=== PATIENT | male | born 1955 | race African-American/Black ===

== ENCOUNTER 2019-04-18 12:20 | Inpatient (IN) | payer OTHER ==
--- NOTE | 2019-04-18 18:49 | HP ---
CIWA Score Nausea/Vomitin Muscle Tremors: 2 Anxiety: 3 Agitation: 2 Paroxysmal Sweats: No Perspiration Orientation: 0-Oriented Tacttile Disturbances: 0-None Auditory Disturbances: 0-None Visual Disturbances: 0-None Headache: 2-Mild CIWA-Ar Total Score: 12 - Admission Criteria [facility]ASAS Guidelines: Admission for Medically Managed Detox: Requires at least one of the followin. CIWA greater than 12 2. Seizures within the past 24 hours 3. Delirium tremens within the past 24 hours 4. Hallucinations within the past 24 hours 5. Acute intervention needed for co occurring medical disorder 6. Acute intervention needed for co occurring psychiatric disorder 7. Severe withdrawal that cannot be handled at a lower level of care (continued vomiting, continued diarrhea, abnormal vital signs) requiring intravenous medication and/or fluids 8. Admission ROS [facility] - [facility] Chief Complaint: alcohol detox Allergies/Adverse Reactions: Allergies Allergy/AdvReac Type Severity Reaction Status Date / Time No Known Allergies Allergy Verified 04/18/19 17:32 History of Present Illness: Patient is a 63 yo M with a PMHx of HTN, BPH, COPD, presenting here for alcohol detox. Drinks 4-5 12oz a day. 1 Pint of liquor a day. Last drink last night around midnight Has been drinking since 25. Last detox 4-5 months ago. Had blackouts, last 1 about 2 months ago. No hx of seizures. Denies drug use except occasional marijuana. unemployed. Lives in a O. smokes 5 cigarettes. Exam Limitations: No Limitations - Ebola screening Have you traveled outside of the country in the last 21 days: No Have you had contact with anyone from an Ebola affected area: No - Review of Systems Constitutional: Loss of Appetite, Unintentional Wgt. Loss Respiratory: reports: Cough (white sputum production). denies: Wheezing Cardiac: denies: Chest Pain, Palpitations Patient History - Smoking Cessation Smoking history: Current every day smoker Have you smoked in the past 12 months: Yes Initiated information on smoking cessation: Yes 'Breaking Loose' booklet given: 04/18/19 - Substances abused Alcohol Substance route: Oral Frequency: Daily Amount used: vodka- 3pts/ beers- 3cans 24oz Age of first use: 25 Date of last use: 04/18/19 Crack Substance route: Smoking Frequency: Daily Amount used: $30 Age of first use: 15 Date of last use: 04/15/19 Family Disease History - Family Disease History Family History: Denies Admission Physical Exam [facility] - Physical General Appearance: Yes: No Apparent Distress Respiratory: Yes: No Respiratory Distress, No Accessory Muscle Use Cardiology: Yes: Regular Rhythm, Regular Rate Abdominal: Yes: Non Tender, Soft Neurological: Yes: Fully Oriented, Normal Response - Diagnostic (1) Alcohol abuse Current Visit: Yes Status: Acute (2) COPD (chronic obstructive pulmonary disease) Current Visit: Yes Status: Acute (3) HTN (hypertension) Current Visit: Yes Status: Acute (4) BPH (benign prostatic hyperplasia) Current Visit: Yes Status: Acute Cleared for Admission [facility] - Detox or Rehab [facility] Level of Care: Medically Managed Breathalyzer - Breathalyzer Breathalyzer: 0 Urine Drug Screen - Test Device Lot number: [id number] Expiration date: 12/30/20 - Control Is test valid?: Yes - Results Urine drug screen results: THC-Marijuana Inpatient Rehab Admission - Rehab Decision to Admit Inpatient rehab admission?: No
[2019-04-18] MEDS ORDERED: BISMUTH SUBSALICYLATE 524 MG/30 ML UD PO PRN (18:59)
[2019-04-18] MEDS ORDERED: MAGNESIUM HYDROX 2400MG/30ML ORAL SUSPENSION 30 ML CUP PO PRN (18:59)
[2019-04-18] MEDS ORDERED: hydrOXYzine PAMOATE 25 MG CAPSULE (FP) PO PRN (18:59)
[2019-04-18] MEDS ORDERED: ACETAMINOPHEN 325 MG TABLET (FP) PO PRN ×2 (18:59)
[2019-04-18] MEDS ORDERED: METHOCARBAMOL 500 MG TABLET PO PRN (18:59)
[2019-04-18] MEDS ORDERED: MAGNESIUM CITRATE 300 ML BOTTLE PO PRN (18:59)
[2019-04-18] MEDS ORDERED: chlordiazePOXIDE HCL 25 MG CAPSULE PO PRN (18:59)
[2019-04-18] MEDS ORDERED: MENTHOL/PHENOL 1 EACH UD MM PRN (18:59)
[2019-04-18] MEDS ORDERED: IBUPROFEN 400 MG TABLET (FP) PO PRN (18:59)
[2019-04-18] MEDS ORDERED: MELATONIN 5 MG TABLETS PO PRN (18:59)
[2019-04-18] MEDS ORDERED: MAG HYDROX/AL HYDROX/SIMETH 30 ML UNIT-DOSE CUP PO PRN (18:59)
[2019-04-18] MEDS ORDERED: ALBUTEROL SO4 8 GM HFA INHALER IH PRN (19:02)
--- NOTE | 2019-04-18 19:02 | PN ---
Teaching Attending Note Name of Resident: Antwan Jennings ATTENDING PHYSICIAN STATEMENT I saw and evaluated the patient. I reviewed the resident's note and discussed the case with the resident. I agree with the resident's findings and plan as documented. SUBJECTIVE: 63 yo was sent by his [facility] housing for drinking too much. Admits to drinking liqour daily in residence OBJECTIVE: Vital Signs - 24 hr 04/18/19 17:36 Temperature 98.4 F Pulse Rate 95 H Respiratory 20 Rate Blood Pressure 157/94 tremulous alert and oriented ASSESSMENT AND PLAN: alcohol use disorder- alcohol detox protocol
[2019-04-18 19:05] VITALS: BMI 20.5
[2019-04-18] MEDS: NICOTINE 14 MG/24 HOURS TOPICAL PATCH TD SCH (20:24)
[2019-04-18] MEDS: THIAMINE HCL 100 MG TABLET (FP) PO SCH (22:25)
[2019-04-18] MEDS: chlordiazePOXIDE HCL 25 MG CAPSULE PO SCH (22:25)
[2019-04-19] MEDS: chlordiazePOXIDE HCL 25 MG CAPSULE PO SCH ×4 (06:17→22:35)
[2019-04-19 09:51] LABS: HEMATOCRIT 45.4 % (35.4-49); HEMOGLOBIN 15.3 GM/dL (11.7-16.9); MCH 33.7 pg (25.7-33.7); MCHC 33.7 g/dl (32.0-35.9); MEAN PLT VOLUME 8.8 fl (7.5-11.1); PLATELET COUNT 178 K/MM3 (134-434); RBC 4.54 M/mm3 (4.00-5.60); RDW 14.3 % (11.9-15.9); WHITE BLOOD COUNT 3.8 K/mm3 (4.0-10.0)
--- NOTE | 2019-04-19 09:57 | PN ---
S CIWA - CIWA Score Nausea/Vomitin-Mild Nausea/No Vomiting Muscle Tremors: 4-Moderate,w/Arms Extend Anxiety: 3 Agitation: 3 Paroxysmal Sweats: 2 Orientation: 0-Oriented Tacttile Disturbances: 0-None Auditory Disturbances: 0-None Visual Disturbances: 0-None Headache: 1-Very Mild CIWA-Ar Total Score: 14 S Progress Note (SOAP) Subjective: 63 years old male [address] [facility] admission admitted on 04/18/19 for alcohol withdrawal sx management long history of hypertension asthma and bph recent bp elevation with headache denies dizziness no chest pain no shortness of breath increase amlodipine to 10 mg po Objective: 04/19/19 09:57 Vital Signs Temperature 97.2 F L 04/19/19 09:41 Pulse Rate 104 H 04/19/19 09:41 Respiratory Rate 20 04/19/19 09:41 Blood Pressure 149/100 04/19/19 09:41 O2 Sat by Pulse Oximetry (%) Laboratory Last Values WBC 3.8 K/mm3 (4.0-10.0) L 04/19/19 08:20 RBC 4.54 M/mm3 (4.00-5.60) 04/19/19 08:20 Hgb 15.3 GM/dL (11.7-16.9) 04/19/19 08:20 Hct 45.4 % (35.4-49) 04/19/19 08:20 MCV 100.0 fl (80-96) H 04/19/19 08:20 MCH 33.7 pg (25.7-33.7) 04/19/19 08:20 MCHC 33.7 g/dl (32.0-35.9) 04/19/19 08:20 RDW 14.3 % (11.9-15.9) 04/19/19 08:20 Plt Count 178 K/MM3 (134-434) 04/19/19 08:20 MPV 8.8 fl (7.5-11.1) 04/19/19 08:20 lab noted Assessment: 04/19/19 09:58 alcohol withdrawal sx Plan: continue librium detox regimen
[2019-04-19] MEDS ORDERED: amLODIPine BESYLATE 5 MG TABLET (FP) PO SCH (10:00)
[2019-04-19] MEDS: TAMSULOSIN HCL 0.4 MG CAP PO SCH (10:13)
[2019-04-19] MEDS: PRENATAL VITAMINS W/ FOLIC ACID TABLET (FP) PO SCH (10:13)
[2019-04-19] MEDS: amLODIPine BESYLATE 10 MG TABLET (FP) PO SCH (10:18)
[2019-04-19] MEDS: NICOTINE 14 MG/24 HOURS TOPICAL PATCH TD SCH (10:18)
[2019-04-19 10:21] LABS: ALBUMIN 3.3 g/dl (3.4-5.0); BLOOD UREA NITROGEN 9.3 mg/dL (7-18); CALCIUM 8.6 mg/dL (8.5-10.1); CREATININE 0.7 mg/dL (0.55-1.3); TOT PROT 7.1 g/dl (6.4-8.2)
[2019-04-19 11:23] LABS: POTASSIUM 2.8 mmol/L (3.5-5.1)
[2019-04-19] MEDS: POTASSIUM CHLORIDE ORAL LIQUID 20 MEQ/15 ML PO SCH ×2 (14:33→17:26)
[2019-04-19] MEDS: THIAMINE HCL 100 MG TABLET (FP) PO SCH (22:36)
[2019-04-20] MEDS: chlordiazePOXIDE HCL 25 MG CAPSULE PO SCH ×4 (05:41→22:45)
[2019-04-20] MEDS: amLODIPine BESYLATE 10 MG TABLET (FP) PO SCH (10:06)
[2019-04-20] MEDS: TAMSULOSIN HCL 0.4 MG CAP PO SCH (10:06)
[2019-04-20] MEDS: POTASSIUM CHLORIDE TABS 20 MEQ TABLET.ER (FP) PO SCH ×2 (10:07→17:28)
[2019-04-20] MEDS: PRENATAL VITAMINS W/ FOLIC ACID TABLET (FP) PO SCH (10:07)
[2019-04-20] MEDS: NICOTINE 14 MG/24 HOURS TOPICAL PATCH TD SCH (10:08)
--- NOTE | 2019-04-20 11:16 | PN ---
[facility] CIWA - CIWA Score Nausea/Vomitin-Mild Nausea/No Vomiting Muscle Tremors: 4-Moderate,w/Arms Extend Anxiety: 3 Agitation: 2 Paroxysmal Sweats: 1-Minimal Palms Moist Orientation: 0-Oriented Tacttile Disturbances: 1-Very Mild Itch/Numbness Auditory Disturbances: 0-None Visual Disturbances: 0-None Headache: 0-None Present CIWA-Ar Total Score: 12 S Progress Note (SOAP) Subjective: doing well with librium detox regimen tolerate K+ supplement well report long history of low K+ when drinking alcohol addition 20 meq K+ supplement today Objective: 04/20/19 11:15 Vital Signs Temperature 97.4 F L 04/20/19 06:36 Pulse Rate 90 04/20/19 06:36 Respiratory Rate 18 04/20/19 06:36 Blood Pressure 118/74 04/20/19 06:36 O2 Sat by Pulse Oximetry (%) Laboratory Last Values WBC 3.8 K/mm3 (4.0-10.0) L 04/19/19 08:20 RBC 4.54 M/mm3 (4.00-5.60) 04/19/19 08:20 Hgb 15.3 GM/dL (11.7-16.9) 04/19/19 08:20 Hct 45.4 % (35.4-49) 04/19/19 08:20 MCV 100.0 fl (80-96) H 04/19/19 08:20 MCH 33.7 pg (25.7-33.7) 04/19/19 08:20 MCHC 33.7 g/dl (32.0-35.9) 04/19/19 08:20 RDW 14.3 % (11.9-15.9) 04/19/19 08:20 Plt Count 178 K/MM3 (134-434) 04/19/19 08:20 MPV 8.8 fl (7.5-11.1) 04/19/19 08:20 Sodium 138 mmol/L (136-145) 04/19/19 08:20 Potassium 2.8 mmol/L (3.5-5.1) L* 04/19/19 08:20 Chloride 98 mmol/L (98-107) 04/19/19 08:20 Carbon Dioxide 33 mmol/L (21-32) H 04/19/19 08:20 Anion Gap 8 MMOL/L (8-16) 04/19/19 08:20 BUN 9.3 mg/dL (7-18) 04/19/19 08:20 Creatinine 0.7 mg/dL (0.55-1.3) 04/19/19 08:20 Est GFR (CKD-EPI)AfAm 116.40 04/19/19 08:20 Est GFR (CKD-EPI)NonAf 100.43 04/19/19 08:20 Random Glucose 98 mg/dL (74-106) 04/19/19 08:20 Calcium 8.6 mg/dL (8.5-10.1) 04/19/19 08:20 Total Bilirubin 1.0 mg/dL (0.2-1) 04/19/19 08:20 AST 34 U/L (15-37) 04/19/19 08:20 ALT 28 U/L (13-61) 04/19/19 08:20 Alkaline Phosphatase 132 U/L (45-117) H 04/19/19 08:20 Total Protein 7.1 g/dl (6.4-8.2) 04/19/19 08:20 Albumin 3.3 g/dl (3.4-5.0) L 04/19/19 08:20 RPR Titer Nonreactive (NONREACTIVE) 04/19/19 08:20 lab noted Assessment: 04/20/19 11:16 alcohol withdrawal sx Plan: continue librium detox regimen order ekg with 1st patient [facility] admission
[2019-04-20] MEDS ORDERED: POTASSIUM CHLORIDE TABS 20 MEQ TABLET.ER (FP) PO ONE (16:30)
[2019-04-20] MEDS: THIAMINE HCL 100 MG TABLET (FP) PO SCH (22:45)
[2019-04-21] MEDS ORDERED: chlordiazePOXIDE HCL 10 MG CAPSULE PO PRN
[2019-04-21] MEDS: chlordiazePOXIDE HCL 10 MG CAPSULE PO SCH ×4 (06:32→22:19)
[2019-04-21] MEDS ORDERED: WITCH HAZEL 50% (TUCKS) 40 PAD/JAR PAD TP PRN (09:58)
[2019-04-21] MEDS: PRENATAL VITAMINS W/ FOLIC ACID TABLET (FP) PO SCH (10:13)
[2019-04-21] MEDS: POTASSIUM CHLORIDE TABS 20 MEQ TABLET.ER (FP) PO SCH ×2 (10:13→17:23)
[2019-04-21] MEDS: TAMSULOSIN HCL 0.4 MG CAP PO SCH (10:13)
[2019-04-21] MEDS: NICOTINE 14 MG/24 HOURS TOPICAL PATCH TD SCH (10:14)
[2019-04-21] MEDS: amLODIPine BESYLATE 10 MG TABLET (FP) PO SCH (10:15)
--- NOTE | 2019-04-21 18:56 | PN ---
S CIWA - CIWA Score Nausea/Vomitin-No Nausea/No Vomiting Muscle Tremors: 2 Anxiety: 2 Agitation: 1-Slight > Activity Paroxysmal Sweats: 2 Orientation: 2-Disoriented Date<2 days Tacttile Disturbances: 0-None Auditory Disturbances: 1-Very Mild Visual Disturbances: 0-None Headache: 0-None Present CIWA-Ar Total Score: 10 BHS Progress Note (SOAP) Subjective: Tremors, Sweating. Objective: PATIENT A & O X 2 (UNCERTAIN ABOUT CURRENT DAY/ DATE). PATIENT OBSERVED AMBULATING ON DETOX UNIT UNASSISTED. IN NO ACUTE DISTRESS. 04/21/19 18:58 Vital Signs Temperature 97.4 F L 04/21/19 17:53 Pulse Rate 112 H 04/21/19 17:53 Respiratory Rate 18 04/21/19 17:53 Blood Pressure 117/82 04/21/19 17:53 O2 Sat by Pulse Oximetry (%) Laboratory Tests 04/19/19 04/19/19 04/19/19 08:20 08:20 08:20 WBC 3.8 L RBC 4.54 Hgb 15.3 Hct 45.4 MCV 100.0 H MCH 33.7 MCHC 33.7 RDW 14.3 Plt Count 178 MPV 8.8 Sodium 138 Potassium 2.8 L* Chloride 98 Carbon Dioxide 33 H Anion Gap 8 BUN 9.3 Creatinine 0.7 Est GFR (CKD-EPI)AfAm 116.40 Est GFR (CKD-EPI)NonAf 100.43 Random Glucose 98 Calcium 8.6 Total Bilirubin 1.0 AST 34 ALT 28 Alkaline Phosphatase 132 H Total Protein 7.1 Albumin 3.3 L RPR Titer Nonreactive TB (QFT) Incubation TB Test (QFT) Nil TB Test (QFT) Mitogen TB Test (QFT) Antigen TB Test (QFT) TB Positive Criteria 04/19/19 08:20 WBC RBC Hgb Hct MCV MCH MCHC RDW Plt Count MPV Sodium Potassium Chloride Carbon Dioxide Anion Gap BUN Creatinine Est GFR (CKD-EPI)AfAm Est GFR (CKD-EPI)NonAf Random Glucose Calcium Total Bilirubin AST ALT Alkaline Phosphatase Total Protein Albumin RPR Titer TB (QFT) Incubation TB Test (QFT) Nil 0.07 TB Test (QFT) Mitogen 3.49 TB Test (QFT) Antigen 4.99 TB Test (QFT) Positive H TB Positive Criteria LABS NOTED. QFT/TB TEST RESULTS NOTED. POSITIVE RESULT NOTED. CXR ORDERED FOR FURTHER EVALUATION AND TO R/O TB. 04/21/19 19:01 Assessment: 04/21/19 18:58 WITHDRAWAL SYMPTOMS. HYPOKALEMIA. POSITIVE QUANTIFERON TEST RESULT. 04/21/19 19:02 Plan: CONTINUE DETOX. CONTINUE K-DUR. REPEAT K LEVEL ORDERED FOR TOMORROW AM TO SEE IF ANY CHANGE FROM ADMISSION K LEVEL.
[2019-04-21] MEDS: BENZOCAINE 28 GM HEMORRHOIDAL OINTMENT PR PRN (19:37)
[2019-04-21] MEDS: THIAMINE HCL 100 MG TABLET (FP) PO SCH (22:19)
[2019-04-22] MEDS: chlordiazePOXIDE HCL 10 MG CAPSULE PO SCH ×2 (05:51→17:51)
[2019-04-22] MEDS: amLODIPine BESYLATE 10 MG TABLET (FP) PO SCH (10:43)
[2019-04-22] MEDS: NICOTINE 14 MG/24 HOURS TOPICAL PATCH TD SCH (10:43)
[2019-04-22] MEDS: PRENATAL VITAMINS W/ FOLIC ACID TABLET (FP) PO SCH (10:43)
[2019-04-22] MEDS: POTASSIUM CHLORIDE TABS 20 MEQ TABLET.ER (FP) PO SCH (10:43)
[2019-04-22] MEDS: TAMSULOSIN HCL 0.4 MG CAP PO SCH (10:43)
--- NOTE | 2019-04-22 17:45 | PN ---
S CIWA - CIWA Score Nausea/Vomitin-No Nausea/No Vomiting Muscle Tremors: 2 Anxiety: 3 Agitation: 2 Paroxysmal Sweats: No Perspiration Orientation: 0-Oriented Tacttile Disturbances: 0-None Auditory Disturbances: 0-None Visual Disturbances: 1-Very Mild Sensitivity Headache: 0-None Present CIWA-Ar Total Score: 8 BHS Progress Note (SOAP) Subjective: Tremors, Anxious. Objective: PATIENT A & O X 3, OBSERVED AMBULATING ON DETOX UNIT UNASSISTED. IN NO ACUTE DISTRESS. 04/22/19 17:42 Vital Signs Temperature 97.4 F L 04/22/19 13:47 Pulse Rate 108 H 04/22/19 13:47 Respiratory Rate 20 04/22/19 13:47 Blood Pressure 120/89 04/22/19 13:47 O2 Sat by Pulse Oximetry (%) Laboratory Tests 04/19/19 04/19/19 04/19/19 08:20 08:20 08:20 WBC 3.8 L RBC 4.54 Hgb 15.3 Hct 45.4 MCV 100.0 H MCH 33.7 MCHC 33.7 RDW 14.3 Plt Count 178 MPV 8.8 Sodium 138 Potassium 2.8 L* Chloride 98 Carbon Dioxide 33 H Anion Gap 8 BUN 9.3 Creatinine 0.7 Est GFR (CKD-EPI)AfAm 116.40 Est GFR (CKD-EPI)NonAf 100.43 Random Glucose 98 Calcium 8.6 Total Bilirubin 1.0 AST 34 ALT 28 Alkaline Phosphatase 132 H Total Protein 7.1 Albumin 3.3 L RPR Titer Nonreactive TB (QFT) Incubation TB Test (QFT) Nil TB Test (QFT) Mitogen TB Test (QFT) Antigen TB Test (QFT) TB Positive Criteria 04/19/19 04/22/19 08:20 08:00 WBC RBC Hgb Hct MCV MCH MCHC RDW Plt Count MPV Sodium Potassium 4.7 Chloride Carbon Dioxide Anion Gap BUN Creatinine Est GFR (CKD-EPI)AfAm Est GFR (CKD-EPI)NonAf Random Glucose Calcium Total Bilirubin AST ALT Alkaline Phosphatase Total Protein Albumin RPR Titer TB (QFT) Incubation TB Test (QFT) Nil 0.07 TB Test (QFT) Mitogen 3.49 TB Test (QFT) Antigen 4.99 TB Test (QFT) Positive H TB Positive Criteria LABS NOTED. RESULT OS REPEAT K LEVEL NOTED (4.7) - NOW WITHIN NORMAL RANGE. K-DUR D/C'D. 04/22/19 17:43 Assessment: 04/22/19 17:42 WITHDRAWAL SYMPTOMS. ELEVATED ALKALINE PHOSPHATASE LEVEL. POSITIVE QFT /TB TEST RESULT. 04/22/19 17:43 Plan: CONTINUE DETOX. PATIENT AGREEABLE TO REMAIN ON DETOX UNIT UNTIL 04/24/2019 SO THAT HE MAY HAVE CXR DONE (FOR POSITIVE QFT / TB RESULT NOTE ON DETOX ADMISSION LABORATORY ASSESSMENT. (PATIENT DOES NOTE THAT HE COMPLETED A FULL COURSE OF TREATMENT FOR TB IN THE PAST.).
[2019-04-22] MEDS: THIAMINE HCL 100 MG TABLET (FP) PO SCH (22:51)
[2019-04-23] MEDS ORDERED: chlordiazePOXIDE HCL 10 MG CAPSULE PO ONE (05:00)
[2019-04-23] MEDS: BENZOCAINE 28 GM HEMORRHOIDAL OINTMENT PR PRN (09:24)
[2019-04-23] MEDS: PRENATAL VITAMINS W/ FOLIC ACID TABLET (FP) PO SCH (09:25)
[2019-04-23] MEDS: amLODIPine BESYLATE 10 MG TABLET (FP) PO SCH (09:25)
[2019-04-23] MEDS: TAMSULOSIN HCL 0.4 MG CAP PO SCH (09:25)
[2019-04-23] MEDS: NICOTINE 14 MG/24 HOURS TOPICAL PATCH TD SCH (10:18)
--- NOTE | 2019-04-23 16:07 | PN ---
S CIWA - CIWA Score Nausea/Vomitin-No Nausea/No Vomiting Muscle Tremors: 2 Anxiety: 1-Mildly Anxious Agitation: 1-Slight > Activity Paroxysmal Sweats: No Perspiration Orientation: 0-Oriented Tacttile Disturbances: 0-None Auditory Disturbances: 0-None Visual Disturbances: 0-None Headache: 0-None Present CIWA-Ar Total Score: 4 S Progress Note (SOAP) Subjective: doing well with librium detox regimen positive qft chest x ray order wait for x ray to be done 1st patient [facility] admission Objective: 04/23/19 16:10 Vital Signs Temperature 98.1 F 04/23/19 13:23 Pulse Rate 109 H 04/23/19 13:23 Respiratory Rate 20 04/23/19 13:23 Blood Pressure 115/74 04/23/19 13:23 O2 Sat by Pulse Oximetry (%) Laboratory Last Values WBC 3.8 K/mm3 (4.0-10.0) L 04/19/19 08:20 RBC 4.54 M/mm3 (4.00-5.60) 04/19/19 08:20 Hgb 15.3 GM/dL (11.7-16.9) 04/19/19 08:20 Hct 45.4 % (35.4-49) 04/19/19 08:20 MCV 100.0 fl (80-96) H 04/19/19 08:20 MCH 33.7 pg (25.7-33.7) 04/19/19 08:20 MCHC 33.7 g/dl (32.0-35.9) 04/19/19 08:20 RDW 14.3 % (11.9-15.9) 04/19/19 08:20 Plt Count 178 K/MM3 (134-434) 04/19/19 08:20 MPV 8.8 fl (7.5-11.1) 04/19/19 08:20 Sodium 138 mmol/L (136-145) 04/19/19 08:20 Potassium 4.7 mmol/L (3.5-5.1) 04/22/19 08:00 Chloride 98 mmol/L (98-107) 04/19/19 08:20 Carbon Dioxide 33 mmol/L (21-32) H 04/19/19 08:20 Anion Gap 8 MMOL/L (8-16) 04/19/19 08:20 BUN 9.3 mg/dL (7-18) 04/19/19 08:20 Creatinine 0.7 mg/dL (0.55-1.3) 04/19/19 08:20 Est GFR (CKD-EPI)AfAm 116.40 04/19/19 08:20 Est GFR (CKD-EPI)NonAf 100.43 04/19/19 08:20 Random Glucose 98 mg/dL (74-106) 04/19/19 08:20 Calcium 8.6 mg/dL (8.5-10.1) 04/19/19 08:20 Total Bilirubin 1.0 mg/dL (0.2-1) 04/19/19 08:20 AST 34 U/L (15-37) 04/19/19 08:20 ALT 28 U/L (13-61) 04/19/19 08:20 Alkaline Phosphatase 132 U/L (45-117) H 04/19/19 08:20 Total Protein 7.1 g/dl (6.4-8.2) 04/19/19 08:20 Albumin 3.3 g/dl (3.4-5.0) L 04/19/19 08:20 RPR Titer Nonreactive (NONREACTIVE) 04/19/19 08:20 TB (QFT) Incubation (.) 04/19/19 08:20 TB Test (QFT) Nil 0.07 IU/mL (.) 04/19/19 08:20 TB Test (QFT) Mitogen 3.49 IU/mL (.) 04/19/19 08:20 TB Test (QFT) Antigen 4.99 IU/mL (.) 04/19/19 08:20 TB Test (QFT) Positive (Negative) H 04/19/19 08:20 TB Positive Criteria (.) 04/19/19 08:20 lab noted x ray pending Assessment: 04/23/19 16:11 alcohol withdrawal sx Plan: continue librium detox regimen
[2019-04-23] MEDS: THIAMINE HCL 100 MG TABLET (FP) PO SCH (22:31)
--- NOTE | 2019-04-24 09:30 | DS ---
[facility] Detox Discharge Summary Admission Date: 04/18/19 Discharge Date: 04/24/19 - History Present History: Alcohol Dependence Additional Comments: 63 years old male admitted on 04/18/19 for alcohol withdrawal sx management did well with librium detox regimen no complication through out the detox stay patient is alert oriented x 3 pulmonary: no wheezing no shortness of breath denies dizziness GI: no nausea no vomiting denies pain extremities: full range of motion, skin warm and dry Pertinent Past History: copd hypertension bph - Physical Exam Results Vital Signs: Vital Signs Temperature 96.4 F L 04/24/19 07:28 Pulse Rate 99 H 04/24/19 07:28 Respiratory Rate 18 04/24/19 07:28 Blood Pressure 104/78 04/24/19 07:28 O2 Sat by Pulse Oximetry (%) Pertinent Admission Physical Exam Findings: alcohol withdrawal sx Laboratory Last Values WBC 3.8 K/mm3 (4.0-10.0) L 04/19/19 08:20 RBC 4.54 M/mm3 (4.00-5.60) 04/19/19 08:20 Hgb 15.3 GM/dL (11.7-16.9) 04/19/19 08:20 Hct 45.4 % (35.4-49) 04/19/19 08:20 MCV 100.0 fl (80-96) H 04/19/19 08:20 MCH 33.7 pg (25.7-33.7) 04/19/19 08:20 MCHC 33.7 g/dl (32.0-35.9) 04/19/19 08:20 RDW 14.3 % (11.9-15.9) 04/19/19 08:20 Plt Count 178 K/MM3 (134-434) 04/19/19 08:20 MPV 8.8 fl (7.5-11.1) 04/19/19 08:20 Sodium 138 mmol/L (136-145) 04/19/19 08:20 Potassium 4.7 mmol/L (3.5-5.1) 04/22/19 08:00 Chloride 98 mmol/L (98-107) 04/19/19 08:20 Carbon Dioxide 33 mmol/L (21-32) H 04/19/19 08:20 Anion Gap 8 MMOL/L (8-16) 04/19/19 08:20 BUN 9.3 mg/dL (7-18) 04/19/19 08:20 Creatinine 0.7 mg/dL (0.55-1.3) 04/19/19 08:20 Est GFR (CKD-EPI)AfAm 116.40 04/19/19 08:20 Est GFR (CKD-EPI)NonAf 100.43 04/19/19 08:20 Random Glucose 98 mg/dL (74-106) 04/19/19 08:20 Calcium 8.6 mg/dL (8.5-10.1) 04/19/19 08:20 Total Bilirubin 1.0 mg/dL (0.2-1) 04/19/19 08:20 AST 34 U/L (15-37) 04/19/19 08:20 ALT 28 U/L (13-61) 04/19/19 08:20 Alkaline Phosphatase 132 U/L (45-117) H 04/19/19 08:20 Total Protein 7.1 g/dl (6.4-8.2) 04/19/19 08:20 Albumin 3.3 g/dl (3.4-5.0) L 04/19/19 08:20 RPR Titer Nonreactive (NONREACTIVE) 04/19/19 08:20 TB (QFT) Incubation (.) 04/19/19 08:20 TB Test (QFT) Nil 0.07 IU/mL (.) 04/19/19 08:20 TB Test (QFT) Mitogen 3.49 IU/mL (.) 04/19/19 08:20 TB Test (QFT) Antigen 4.99 IU/mL (.) 04/19/19 08:20 TB Test (QFT) Positive (Negative) H 04/19/19 08:20 TB Positive Criteria (.) 04/19/19 08:20 lab noted positive qft waiting for chest x ray rule out tb - Treatment Hospital Course: Detox Protocol Followed, Detoxed Safely, Responded well, Discharged Condition Good, Rehab Referral Accepted Patient has Accepted a Rehab Referral to: community support approach - Medication Discharge Medications: Ambulatory Orders Amlodipine Besylate 10 mg PO DAILY 04/18/19 Folic Acid - 1 mg PO DAILY 04/18/19 Multivitamins [Multivit ([facility] Formul[facility])] 1 tab PO DAILY 04/18/19 Albuterol Sulfate Inhaler - [Ventolin HFA Inhaler -] 2 puff IH Q4H PRN #1 inhaler 04/23/19 Amlodipine Besylate [Norvasc -] 10 mg PO DAILY #30 tablet 04/23/19 Tamsulosin HCl [Flomax -] 0.4 mg PO DAILY #30 cap.er.24h 04/23/19 - Diagnosis (1) Alcohol dependence with uncomplicated withdrawal Current Visit: Yes Status: Acute (2) BPH (benign prostatic hyperplasia) Current Visit: Yes Status: Chronic Qualifiers: Lower urinary tract symptom presence: symptoms absent Qualified Code(s): N40.0 - Benign prostatic hyperplasia without lower urinary tract symptoms (3) COPD (chronic obstructive pulmonary disease) Current Visit: Yes Status: Chronic Qualifiers: COPD type: emphysema Emphysema type: unilateral Qualified Code(s): J43.0 - Unilateral pulmonary emphysema [MacLeod's syndrome] (4) HTN (hypertension) Current Visit: Yes Status: Chronic Qualifiers: Hypertension type: essential hypertension Qualified Code(s): I10 - Essential (primary) hypertension (5) Positive QuantiFERON-TB Gold test Current Visit: Yes Status: Ruled-out - AMA Did Patient Leave Against Medical Advice: No CIWA Score - CIWA Score Nausea/Vomitin-No Nausea/No Vomiting Muscle Tremors: 1-None Visible, but [place] Anxiety: 0-No Anxiety, at Ease Agitation: 0-Normal Activity Paroxysmal Sweats: No Perspiration Orientation: 0-Oriented Tacttile Disturbances: 0-None Auditory Disturbances: 0-None Visual Disturbances: 0-None Headache: 0-None Present CIWA-Ar Total Score: 1
[2019-04-24 09:39] VITALS: BP 108/73; PULSE 97; TEMP 97.5
== END 2019-04-24 09:20 | disposition home or self-care (01) | DRG 897 ==
LOC: YASAS 12:20 → Y3N 19:52
PROVIDERS: ADMIT Surgery; ATTEND Surgery
PROC: HZ2ZZZZ Detoxification Services for Substance Abuse Treatment (ICD-10-PCS; principal; 2019-04-18)
DX: F10.230 Alcohol dependence with withdrawal, uncomplicated (principal); F14.20 Cocaine dependence, uncomplicated; F17.210 Nicotine dependence, cigarettes, uncomplicated; I10 Essential (primary) hypertension; E87.6 Hypokalemia; J43.0 Unilateral pulmonary emphysema [MacLeod's syndrome]; N40.0 Benign prostatic hyperplasia without lower urinary tract symptoms; R76.11 Nonspecific reaction to tuberculin skin test without active tuberculosis; R94.5 Abnormal results of liver function studies; R63.4 Abnormal weight loss; Z68.20 Body mass index [BMI] 20.0-20.9, adult
CPT/HCPCS: 36415; 80053; 84132; 85027; 86480; 86593